=== PATIENT | male | born 1955 | race Caucasian/White ===

== ENCOUNTER 2018-07-19 20:58 | Emergency (ER) | payer MEDICARE ==
[2018-07-19 21:30] VITALS: BP 132/73
--- NOTE | 2018-07-19 22:05 | UC ---
Skin Complaint HPI - HPI Summary HPI Summary: 62 year old male with history of kidney transplant presents for tick bite to the right forearm. States discovered earlier today and his attempted to remove the tick but thinks part of the head is still embedded. Reports confident it was attached for less then 24 hours and was not engorged. He is presently on a 28 day course of doxycycline for a previous tick bite. Denies fever, chills, flu-like illness, myalgias, joint pain or swelling. - History of Current Complaint Chief Complaint: UCSkin Time Seen by Provider: 07/19/18 21:58 Stated Complaint: TICK Hx Obtained From: Patient Pain Intensity: 0 - Allergy/Home Medications Allergies/Adverse Reactions: Allergies Allergy/AdvReac Type Severity Reaction Status Date / Time povidone-iodine AdvReac Rash Verified 07/19/18 21:30 [From Betadine] soap [From Betadine] AdvReac Rash Verified 07/19/18 21:30 Home Medications: Home Medications Amitriptyline TAB* [Elavil TAB*] 20 mg PO BEDTIME 07/19/18 [History Confirmed ] Carvedilol TAB* [Coreg TAB*] 12.5 mg PO BID 07/19/18 [History Confirmed 07/19/18 ] Cholecalciferol TAB* [Vitamin D TAB*] 800 unit PO DAILY 07/19/18 [History Confirmed 07/19/18] Fosinopril Sodium 10 mg PO DAILY 07/19/18 [History Confirmed 07/19/18] Gabapentin CAP(*) [Neurontin 300 CAP(*)] 600 mg PO TID 07/19/18 [History Confirmed 07/19/18] Magnesium Oxide [Magnesium] 400 mg PO DAILY 07/19/18 [History Confirmed 07/19/18 ] Multivitamin [Multivitamins] 1 cap PO DAILY 07/19/18 [History Confirmed 07/19/18 ] Mycophenolate Mofetil CAP(*) [Cellcept CAP(*)] 1,000 mg PO BID 07/19/18 [ History Confirmed 07/19/18] Omeprazole 20 mg PO DAILY 07/19/18 [History Confirmed 07/19/18] Pravastatin Sodium 20 mg PO DAILY 07/19/18 [History Confirmed 07/19/18] Tacrolimus CAP(*) [Prograf CAP(*)] 1 mg PO DAILY 07/19/18 [History Confirmed 12/28] PMH/Surg Hx/FS Hx/Imm Hx Cardiovascular History: Hypertension GI/ History: Gastroesophageal Reflux, Renal Disease - Surgical History Surgical History: Yes - Kidney transplant - Family History Known Family History: Positive: Non-Contributory - Social History Occupation: Disabled Lives: With Family Alcohol Use: Weekly Substance Use Type: None Smoking Status (MU): Former Smoker When Did the Patient Quit Smoking/Using Tobacco: 2008 Review of Systems All Other Systems Reviewed And Are Negative: Yes Constitutional: Negative: Fever, Chills Skin: Positive: Other - See HPI. Negative: Rash Respiratory: Positive: Negative Cardiovascular: Positive: Negative Gastrointestinal: Positive: Negative Genitourinary: Positive: Negative Musculoskeletal: Negative: Arthralgia, Myalgia Neurological: Positive: Negative Physical Exam - Summary Physical Exam Summary: GENERAL APPEARANCE: Well developed, well nourished, alert and cooperative, and appears to be in no acute distress. CARDIAC: Normal S1 and S2. No S3, S4 or murmurs. Rhythm is regular. There is no peripheral edema, cyanosis or pallor. Extremities are warm and well perfused. Capillary refill is less than 2 seconds. Peripheral pulses intact. LUNGS: Clear to auscultation without rales, rhonchi, wheezing or diminished breath sounds. ABDOMEN: Positive bowel sounds. Soft, nondistended, nontender. No guarding or rebound. No masses or hepatosplenomegally. MUSKULOSKELETAL: ROM intact to all extremities. No joint erythema or tenderness. Normal muscular development. Normal gait. SKIN: Small, erythematous circular area of erythema <0.5 cm to the right forearm with what appears to be a retained mouthpart centrally. Triage Information Reviewed: Yes Vital Signs: Initial Vital Signs Temp 98.4 F 07/19/18 21:21 Pulse 81 07/19/18 21:21 Resp 18 07/19/18 21:21 BP 132/73 07/19/18 21:21 Pulse Ox 96 07/19/18 21:21 Vital Signs Reviewed: Yes Course/Dx - Course Course Of Treatment: 62 year old male with history of kidney transplant presents for tick bite to the right forearm. States discovered earlier today and his attempted to remove the tick but thinks part of the head is still embedded. Reports confident it was attached for less then 24 hours and was not engorged. He is presently on a 28 day course of doxycycline for a previous tick bite. Denies fever, chills, flu-like illness, myalgias, joint pain or swelling. Afebrile. VSS. Exam revealed small, erythematous circular area of erythema <0.5 cm to the right forearm with what appears to be a retained mouthpart centrally. Discussed with patient the risks and benefits of removal vs allowing the mouthpart to naturally works its way out and he is choosing watchful waiting at this time. Since he is already on doxyxcline, prophylaxis is not warranted. He is to follow up with his PCP as needed. Reviewed signs and symptoms of Lyme disease, anticipatory guidance, and warning symptoms with the patient. Verbalizes understanding and agrees with POC. - Differential Diagnoses - Skin Complaint Differential Diagnoses: Local Allergic Reaction, Tick Born Illness - Diagnoses Provider Diagnosis: Tick bite of right forearm Discharge - Sign-Out/Discharge Documenting (check all that apply): Patient Departure All imaging exams completed and their final reports reviewed: No Studies - Discharge Plan Condition: Stable Disposition: HOME Patient Education Materials: Tick Bite (ED) Referrals: Andriy Rosenberg MD [Primary Care Provider] - Additional Instructions: Ticks transmit infection only after they have attached and then taken a blood meal from their new host. A tick that has not attached cannot not pass any infection. Since the deer tick that transmits Lyme disease typically feeds for more than 36 hours before transmitting the organisim that causes Lyme disease, the risk of acquiring Lyme disease from an tick bite is only 1.2 to 1.4 percent , even in an area where the disease is common. There is no benefit of blood testing for Lyme disease at the time of the tick bite because even people who become infected will not have a positive blood test until approximately two to six weeks after the tick bite. To try to avoid getting bitten by a tick, you can: * Wear shoes, long-sleeved shirts, and long pants when you go outside. Keep ticks away from your skin by tucking your pants into your socks. * Wear light colors so you can spot any ticks that get on your clothes. * Wear bug spray or cream that contains DEET. (Do not use DEET on babies younger than 2 months.) On your clothes and gear, you can use bug repellents that have a chemical called "permethrin." * Shower within 2 hours of being outdoors if you think you have been in an area where there are ticks. * Put dry clothes briefly (for about 4 minutes) in a dryer after being outdoors. * Check your clothes and body for ticks after being outdoors. Be sure to check your scalp, waist, armpits, groin, and backs of your knees. Check your children , too. After a tick bite, you will need to monitor for signs of Lyme disease over the nexter several weeks even if you have been given antibiotics to prevent the infection. Seek immediate medical attention if you develop a bullseye rash, fever, flu-like symptoms including headache, stiff neck, fatigue, muscle aches, joint pain or swelling. - Billing Disposition and Condition Condition: STABLE Disposition: Home
== END 2018-07-19 22:21 | disposition home or self-care (01) ==
LOC: UCCORT 20:58
DX: S50.861A Insect bite (nonvenomous) of right forearm, initial encounter (principal); W57.XXXA Bitten or stung by nonvenomous insect and other nonvenomous arthropods, initial encounter; Y92.89 Other specified places as the place of occurrence of the external cause; K21.9 Gastro-esophageal reflux disease without esophagitis; I12.9 Hypertensive chronic kidney disease with stage 1 through stage 4 chronic kidney disease, or unspecified chronic kidney disease; N18.9 Chronic kidney disease, unspecified; Z94.0 Kidney transplant status; Z87.891 Personal history of nicotine dependence; Z88.8 Allergy status to other drugs, medicaments and biological substances; Z91.048 Other nonmedicinal substance allergy status
CPT/HCPCS: 99201; G0463